=== PATIENT | male | born 1985 | race Caucasian/White ===

== ENCOUNTER 2024-08-12 11:04 | Emergency (ER) | payer BC ==
[2024-08-12 11:22] VITALS: TEMP 97.9
[2024-08-12] MEDS ORDERED: TORAdol 30 mg Injection ONE (11:37)
[2024-08-12] MEDS ORDERED: Zofran 4 MG/2 ML VIAL ONE (11:37)
[2024-08-12] MEDS: TORAdol 30 mg Injection IV ONE (11:38)
[2024-08-12] MEDS: Zofran 4 MG/2 ML VIAL IV ONE (11:38)
--- NOTE | 2024-08-12 11:39 | ERPHSYRPT ---
- History of Present Illness Time Seen by Provider: 08/12/24 11:25 Historian: patient Patient Subjective Stated Complaint: Flank pain (right side) Triage Nursing Assessment: Patient ambulated back to ED and transferred to bed per self. Patient A+O X 3. Patient's skin flushed and diaphorectic. Patient states around 0600 he started having right lower abdominal pain and he took a pain pill around 0800 and the pain subsided. Patient stated around 1020 he started having right right lower abdominal pain that was moving to the right flank. Patient complains of right sided flank pain 6/10. Patient complains of Nausea, but denies vomiting. Physician History: Pt states he started with sharp 6/10 RLQ abdominal pain about 6 AM today with right flank pain; denies vomiting, fever, dysuria, chest pain, shortness of air. LBM was today & wnl. Allergies/Adverse Reactions: No Known Drug Allergies Allergy (Unverified 08/12/24 11:15) Hx Influenza Vaccination/Date Given: No Hx Pneumococcal Vaccination/Date Given: No Immunizations Up to Date: Yes Travel Risk - International Travel Have you traveled outside of the country in past 3 weeks: No - Emerging Infectious Disease Are you exhibiting symptoms associated with any current EIDs: No - Review of Systems Constitutional: No Fever Ears, Nose, & Throat: No Ear Pain, No Throat Pain Respiratory: No Dyspnea Cardiac: No Chest Pain Abdominal/Gastrointestinal: Abdominal Pain, No Vomiting, No Diarrhea Neurological: No Headache - Past Medical History Pertinent Past Medical History: No Neurological History: No Pertinent History ENT History: No Pertinent History Cardiac History: No Pertinent History Respiratory History: No Pertinent History Endocrine Medical History: No Pertinent History Musculoskeletal History: No Pertinent History GI Medical History: No Pertinent History History: No Pertinent History Psycho-Social History: No Pertinent History Male Reproductive Disorders: No Pertinent History - Past Surgical History Past Surgical History: Yes Neuro Surgical History: No Pertinent History Cardiac: No Pertinent History Respiratory: No Pertinent History Gastrointestinal: No Pertinent History, Exploratory Laparoscopy Musculoskeletal: Orthopedic Surgery Male Surgical History: No Pertinent History Other Surgical History: Patient has - Social History Smoking Status: Never smoker Exposure to second hand smoke: No Drug Use: none - Social Determinants of Health Will the patient participate in the screening: Yes Do you worry about a steady place to live?: No Do you have any problems with any of the following?: No known problems In the past 12 months,have you had to go without utilities?: No Transportation Issues: No Has anyone in your support network made you feel unsafe?: No Have you or anyone in your house had to go without enough: No - Nursing Vital Signs Nursing Vital Signs: Initial Vital Signs Blood Pressure 162/82 08/12/24 11:12 Pain Scale Pain Intensity 2 - Physical Exam General Appearance: alert Eye Exam: eyes nml inspection Ears, Nose, Throat Exam: TMs normal, pharynx normal Neck Exam: normal inspection Respiratory Exam: normal breath sounds, airway intact Cardiovascular Exam: normal heart sounds Gastrointestinal/Abdomen Exam: normal bowel sounds Extremity Exam: No pedal edema Neurologic Exam: alert, cooperative Skin Exam: warm, dry SpO2 Interpretation: normal SpO2: 100 O2 Delivery: Room Air - Course Nursing assessment & vital signs reviewed: Yes - CT Exams Abdomen/Pelvis CT Interpretation: Tele-radiologist Report (Tiny non-obstructing left renal clculi. Tiny calculus at the right ureter just before the vesicoureteric junction with slightly ecstatic right ureter. No evidence of acute intra- abdominal pathology. ) Ordered Tests: Active Orders 24 hr Category Date Time Status IV Insertion STAT Care 08/12/24 11:33 Active ABDOMEN AND PELVIS W/0 CONTRAS [CT] Stat Exams 08/12/24 11:34 Completed AMYLASE Stat Lab 08/12/24 11:33 Completed CBC W DIFF Stat Lab 08/12/24 11:33 Completed CMP Stat Lab 08/12/24 11:33 Completed LIPASE Stat Lab 08/12/24 11:33 Completed MAGNESIUM Stat Lab 08/12/24 12:10 Completed UA W/RFX UR CULTURE Stat Lab 08/12/24 11:33 Ordered Medication Summary Discontinued Medications Generic Name Dose Route Start Last Admin Trade Name Freq PRN Reason Stop Dose Admin Ketorolac Tromethamine 30 mg 08/12/24 11:33 08/12/24 11:38 Ketorolac Tromethamine 30 Mg/Ml Inj IV 08/12/24 11:34 30 mg STAT ONE Administration Ketorolac Tromethamine Confirm 08/12/24 11:37 Ketorolac Tromethamine 30 Mg/Ml Inj Administered 08/12/24 11:38 Dose 30 mg .ROUTE .STK-MED ONE Ondansetron HCl 4 mg 08/12/24 11:33 08/12/24 11:38 Ondansetron Hcl 4 Mg/2 Ml Vial IV 08/12/24 11:34 4 mg STAT ONE Administration Ondansetron HCl Confirm 08/12/24 11:37 Ondansetron Hcl 4 Mg/2 Ml Vial Administered 08/12/24 11:38 Dose 4 mg .ROUTE .STK-MED ONE Lab/Rad Data: Laboratory Result Diagrams 08/12/24 11:33 08/12/24 11:33 Laboratory Results 08/12/24 08/12/24 08/12/24 Range/Units 12:10 11:33 11:33 WBC 11.3 H (4.23-9.07) x10^3/uL RBC 5.42 (4.63-6.08) x10^6/uL Hgb 15.6 (13.7-17.5) g/dL Hct 46.5 (40.1-51.0) % MCV 85.8 (79.0-92.2) fL MCH 28.8 (25.7-32.2) pg MCHC 33.5 (32.3-36.5) g/dL RDW 11.5 L (11.6-14.4) % Plt Count 294 (163-337) x10^3/uL MPV 9.9 (9.4-12.4) fL Gran % 81.0 H (34.0-67.9) % Immature Gran % (Auto) 0.3 (0.001-0.429) % Nucleat RBC Rel Count 0.0 (0.00-0.2) % Eos # (Auto) 0.01 L (0.04-0.54) x10^3/uL Immature Gran # (Auto) 0.03 (0.001-0.031) x10^3u/L Absolute Lymphs (auto) 1.71 (1.32-3.57) x10^3/uL Absolute Monos (auto) 0.36 (0.30-0.82) x10^3/uL Absolute Nucleated RBC 0.00 (0.00-0.012) x10^3u/L Lymphocytes % 15.1 L (21.8-53.1) % Monocytes % 3.2 L (5.3-12.2) % Eosinophils % 0.1 L (0.8-7.0) % Basophils % 0.3 (0.2-1.2) % Absolute Granulocytes 9.16 H (1.78-5.38) x10^3/uL Basophils # 0.03 (0.01-0.08) x10^3/uL Sodium 134 L (135-145) mmol/L Potassium 4.2 (3.5-5.1) mmol/L Chloride 106 (98-107) mmol/L Carbon Dioxide 13 L* (22-30) mmol/L Anion Gap 18.8 H (5-15) MEQ/L BUN 22 H (9-20) mg/dL Creatinine 1.23 (0.66-1.25) mg/dL Estimated GFR 77.5 ML/MIN Glucose 122 H (74-106) mg/dL Calcium 9.9 (8.4-10.2) mg/dL Magnesium 1.7 (1.6-2.3) mg/dL Total Bilirubin 0.80 (0.2-1.3) mg/dL AST 35 (17-59) U/L ALT 26 (0-50) U/L Alkaline Phosphatase 73 (38-126) U/L Serum Total Protein 8.2 (6.3-8.2) g/dL Albumin 4.7 (3.5-5.0) g/dL Amylase 120 H (30-110) U/L Lipase 790 H (23-300) U/L - Progress Progress: improved Counseled pt/family regarding: lab results, diagnosis, need for follow-up, rad results Medical Desision Making - Diagnostic Testing Diagnostic test were ordered, analyzed, and reviewed by me: Yes Radiological Interpretation: Teleradiologist Report - Departure Departure Disposition: Home Clinical Impression: Renal colic on right side, Abdominal pain Condition: Stable Critical Care Time: No Referrals: BEATRIZ LOVE MD [Primary Care Provider] - Follow up/PCP as directed Instructions: Kidney Stones (DC) Additional Instructions: Strain all urines. Follow up with Dr. Johnson(Urologist) in [place], [place]; call tomorrow for an appointment. Follow up with your private doctor tomorrow. Forms: Work/School Release Form Prescriptions: Ondansetron ODT 4 MG [Zofran Odt 4 mg] 4 mg PO Q6H PRN PRN #10 tablet PRN Reason: Nausea Tamsulosin HCl 0.4 mg [Flomax 0.4 MG] 0.4 mg PO DAILY #14 cap Ketorolac Trometh 10 mg Tab [TORAdol 10 MG TABLET] 10 mg PO DAILY #14 tablet
[2024-08-12 11:42] LABS: Absolute Neutrophil Ct (ANC) 9.16 x10^3/uL (1.78-5.38); BASOPHIL % 0.3 % (0.2-1.2); Basophil (Absolute #) 0.03 x10^3/uL (0.01-0.08); Eosinophil % 0.1 % (0.8-7.0); Eosinophil (Absolute #) 0.01 x10^3/uL (0.04-0.54); Hematocrit 46.5 % (40.1-51.0); Hemoglobin 15.6 g/dL (13.7-17.5); IMMATURE GRAN # 0.03 x10^3u/L (0.001-0.031); IMMATURE GRAN % 0.3 % (0.001-0.429); Lymphocyte (Absolute #) 1.71 x10^3/uL (1.32-3.57); Lymphocytes % 15.1 % (21.8-53.1); Mean Cell Volume 85.8 fL (79.0-92.2); Mean Corpuscular Hemoglobin 28.8 pg (25.7-32.2); Mean Corpuscular Hgb Concent. 33.5 g/dL (32.3-36.5); Mean Platelet Volume 9.9 fL (9.4-12.4); Monocyte (Absolute #) 0.36 x10^3/uL (0.30-0.82); Monocytes % 3.2 % (5.3-12.2); Platelet Count 294 x10^3/uL (163-337); Red Blood Count 5.42 x10^6/uL (4.63-6.08); Red Cell Distribution Width 11.5 % (11.6-14.4); White Blood Count 11.3 x10^3/uL (4.23-9.07)
[2024-08-12 11:56] LABS: ALBUMIN 4.7 g/dL (3.5-5.0); ANION GAP 18.8 MEQ/L (5-15); BILIRUBIN,TOTAL 0.8 mg/dL (0.2-1.3); Calcium 9.9 mg/dL (8.4-10.2); Creatinine 1 1.23 mg/dL (0.66-1.25); EST GLOMERULAR FILTRATION RATE 77.5 ML/MIN; Potassium 4.2 mmol/L (3.5-5.1); Total Protein 8.2 g/dL (6.3-8.2)
--- NOTE | 2024-08-12 12:59 | XRAY ---
CLINICAL HISTORY: RLQ pain COMPARISON: None. TECHNIQUE: Non-contrast CT of the abdomen and pelvis was performed, with the following protocol: axial images, and reconstructed coronal and sagittal images. No intravenous contrast was administered. One of the following dose reduction techniques was utilized for this exam: Automated exposure control, adjustment of the mA and/or kV according to patient size, and use of iterative reconstruction. FINDINGS: Abdomen: Liver: Normal in size, shape, and density. No focal lesions, cysts, or masses were identified. Gallbladder and Biliary System: The gallbladder is normal in size and shape. No wall thickening, pericholecystic fluid, or gallstones were identified. Pancreas: Pancreatic head, body, and tail are visualized and appear normal in size and density. No pancreatic masses or calcifications were noted. Spleen: Normal in size, shape, and density. No splenic lesions or masses were identified. Kidneys and Adrenal Glands: Both kidneys are normal in size, shape, and position. Cortical thickness is within normal limits. Tiny few nonobstructing left renal calculi, the largest 2 mm is noted. Another tiny calculus 2.5 mm is noted at right ureter just before the vesicoureteric junction with a slightly ectatic right ureter. No right renal calculi,no hydronephrosis. Adrenal glands are unremarkable. Appendix: The appendix is normal in size without becca appendiceal fat stranding and without an appendicolith. No evidence of appendiceal abscess or perforation. Pelvis: Urinary Bladder: Normal in contour and wall thickness. No intraluminal lesions. Prostate: Normal in size and contour. No gross masses. Peritoneal and Retroperitoneal Structures: No free fluid or abnormal fluid collections were identified within the abdomen or pelvis. No lymphadenopathy was noted. Bowel: The visualized bowel loops are normal in caliber and appearance. No evidence of bowel obstruction or wall thickening. Bones and Soft Tissues: Mild dorsolumbar spondylodegenerative changes. Pelvic bones and soft tissues are unremarkable. No fractures or abnormal masses were identified. Operative intervention with the device at the right gluteal region and wire is passing to the posterior pelvic wall likely sacral nerve stimulator IMPRESSION: 1. Tiny non-obstructing left renal calculi. 2. Tiny calculus at the right ureter just before the vesicoureteric junction with slightly ecstatic right ureter 3. No evidence of acute intra-abdominal pathology. 4. Clinical correlation is recommended. [facility] ER was called at [phone] at 11:52 AM CVICU RN, 08/12/2024 and the nurse Della was informed regarding the significant medical findings. Electronically Signed by: Matthew Yin MD. (08/12/2024 12:56:20 EST)
[2024-08-12 13:51] VITALS: BP 132/85; PULSE 62; RESP 18; O2SAT 98
[2024-08-12 13:58] LABS: Appearance Clear (Clear); Bacteria None Seen /HPF (None Seen); Bilirubin Negative (Negative); Blood Moderate (Negative); Epithelial Cells None Seen /HPF (None Seen); Glucose, Urine Negative (Negative); Hyaline Casts NONE SEEN /LPF (0-2); Ketones Trace (Negative); Leukocyte Esterase Negative (Negative); Nitrite Negative (Negative); Ph 6.5 (4.6-8.0); Protein,Urine Dip Negative (Negative); Urobilinogen 0.2 mg/dL (0.2)
== END 2024-08-12 14:17 | disposition home or self-care (01) ==
LOC: ED 11:04
DX: N23 Unspecified renal colic (principal)
CPT/HCPCS: 36415; 74176; 80053; 81001; 82150; 83690; 83735; 85025; 96374; 96375; 99284; 99285; J1885; J2405